=== PATIENT | male | born 1965 ===

== ENCOUNTER 2017-04-18 10:31 | Emergency (ER) | payer MEDICAID ==
[2017-04-18 10:32] VITALS: BMI 29.8
[2017-04-18] MEDS ORDERED: Oxycodone/Acetaminophen 5/325 mg Tab PO STA (12:59)
--- NOTE | 2017-04-18 13:01 | ED PDOC ---
HPI: Back Time Seen by Provider: 04/18/17 12:40 Chief Complaint (Nursing): Back Pain Chief Complaint (Provider): Back pain History Per: Patient History/Exam Limitations: no limitations Additional Complaint(s): Patient is a 52 y/o male with no significant past medical history presenting to the emergency department for left lower back pain that radiates to his leg. Reports that it is difficult to position his leg in any way. Notes taking Naproxen and Advil without any significant relief. Denies any other complaints. PCP: none provided. Past Medical History Reviewed: Historical Data, Nursing Documentation, Vital Signs - Medical History PMH: Diabetes, HTN - Family History Family History: States: No Known Family Hx - Home Medications Home Medications: Ambulatory Orders Medication Instructions Recorded Acetaminophen/Oxycodone Hydr 1 tab PO Q6H PRN #10 tab 02/07/14 [Percocet 325 mg-5 mg] Ciprofloxacin HCl [Cipro] 500 mg PO BID #14 tab 02/07/14 Tamsulosin [Flomax] 0.4 mg PO DAILY #14 cap 02/07/14 Naproxen 1 tab PO Q12 PRN #10 tab 04/18/17 diaZEpam [Valium] 5 mg PO Q6 PRN #4 tab 04/18/17 oxyCODONE/Acetaminophen [Percocet 1 ea PO Q6 PRN #8 tab 04/18/17 5/325 mg Tab] - Allergies Allergies/Adverse Reactions: Allergies Allergy/AdvReac Type Severity Reaction Status Date / Time No Known Allergies Allergy Unverified 02/07/14 11:26 Review of Systems ROS Statement: Except As Marked, All Systems Reviewed And Found Negative Musculoskeletal: Positive for: Back Pain (left lower, radiating) Physical Exam - Reviewed Nursing Documentation Reviewed: Yes Vital Signs Reviewed: Yes - Physical Exam Appears: Positive for: Well, Non-toxic, No Acute Distress Head Exam: Positive for: ATRAUMATIC, NORMAL INSPECTION, NORMOCEPHALIC Skin: Positive for: Normal Color, Warm, Dry Eye Exam: Positive for: Normal appearance Neck: Positive for: Normal, Painless ROM, Supple Cardiovascular/Chest: Positive for: Regular Rate, Rhythm Respiratory: Negative for: Accessory Muscle Use, Respiratory Distress Back: Positive for: Other (right sided lower lumbar tenderness). Negative for: L CVA Tenderness, R CVA Tenderness, Vertebral Tenderness Extremity: Positive for: Normal ROM, Other (positive leg raise,). Negative for : Pedal Edema Neurologic/Psych: Positive for: Alert, Oriented (x3) - Progress ED Course And Treament: percocet 5/325 mg x 1 dose with no relief dilaudid 0.5 mg IM x 1 dose Medical Decision Making Medical Decision Making: Time: 12:59 Initial impression: back pain Initial plan: OxyCODONE/Acetaminophen 1 tab PO Scribe Attestation: Documented by Opal Zamorano, acting as a scribe for DEYANIRA Pierre. Provider Scribe Attestation: All medical record entries made by the Scribe were at my direction and personally dictated by me. I have reviewed the chart and agree that the record accurately reflects my personal performance of the history, physical exam, medical decision making, and the department course for this patient. I have also personally directed, reviewed, and agree with the discharge instructions and disposition. Disposition - Clinical Impression Clinical Impression: Back strain, Sciatica - Patient ED Disposition Is Patient to be Admitted: No - Disposition Disposition: Routine/Home Disposition Time: 13:52 Condition: FAIR Prescriptions: diaZEpam [Valium] 5 mg PO Q6 PRN #4 tab PRN Reason: Muscle Spasm Naproxen 1 tab PO Q12 PRN #10 tab PRN Reason: Pain, Moderate (4-7) oxyCODONE/Acetaminophen [Percocet 5/325 mg Tab] 1 ea PO Q6 PRN #8 tab PRN Reason: Pain, Moderate (4-7) Instructions: Sciatica (ED), Acute Low Back Pain (DC) Forms: [employer] (Faroese), [facility] ED School/Work Excuse Print Language: VINCENTIAN
[2017-04-18] MEDS ORDERED: Oxycodone/Acetaminophen 5/325 mg Tab ONE (13:07)
[2017-04-18] MEDS ORDERED: HYDROmorphone 0.5 mg/0.5 ml ISec ONE (13:29)
[2017-04-18] MEDS ORDERED: HYDROmorphone 0.5 mg/0.5 ml ISec IM STA (13:33)
[2017-04-18 14:02] VITALS: BP 130/81; PULSE 75; RESP 18; TEMP 98; O2SAT 100
== END 2017-04-18 14:02 | disposition home or self-care (01) ==
LOC: H.ER 10:31
DX: M54.32 Sciatica, left side (principal); E11.9 Type 2 diabetes mellitus without complications; I10 Essential (primary) hypertension
CPT/HCPCS: 96372; 99282; J1170